=== PATIENT | female | born 1950 | race Caucasian/White ===

== ENCOUNTER 2022-12-21 15:46 | Inpatient (IN) ==
--- NOTE | 2022-12-21 16:00 | ED Triage Note ---
Date of Service December 21, 2022 History of Present Illness This patient was briefly evaluated while in triage. An abbreviated physical exam was performed. This patient is a 72-year-old Female who presents to the ED for evaluation of hip pain. She was getting out of the car to go into a restaurant to eat and took 1-2 steps before she slipped on something and landed on her right hip. Made a "crunchy" sound. Had trouble getting up, but was finally able to get up and drive herself home. Not really able to move the right leg or walk without a significant limp. Also has an abrasion to the right wrist. Tetanus shot UTD. Hit right shoulder, but only mild pain. Did not hit her head. No blood thinner s. Declines medication for pain right now. Physical Exam GENERAL: Non-toxic and in no acute distress. HEENT: Pupils equal. No obvious scleral icterus. HEART: Regular rate and rhythm. LUNGS: Clear to auscultation. No accessory muscle use. ABDOMEN: Soft and nontender to palpation. SKIN: Superficial abrasion to the right wrist without active bleeding. NEURO: Alert and oriented. No obvious neurological deficits on quick neuro exam. MUSCULOSKELETAL: Tender to palpation over the right hip. The patient is sitting in a wheelchair and exam is limited, but has pain in the right hip with any attempted to move the right lower extremity. She is also tender to palpation over the anterior and lateral aspect of the right shoulder. Full range of mot ion of the right shoulder, but with mild pain. Initial orders for labs and / or imaging were placed and patient was placed in the waiting area until a bed is available. Please see further documentation for the full ED course. MDM / Impression Impression Impression: Subcapital fracture of right hip Impression: Subcapital fracture of right hip Qualifiers: Encounter type: initial encounter Fracture type: closed Qualified Code(s): S72.011A - Unspecified intracapsular fracture of right femur, initial encounter for closed fracture
--- NOTE | 2022-12-21 18:25 | XRay Report ---
SINGLE VIEW PELVIS; 2 VIEWS RIGHT HIP CLINICAL HISTORY: Recent fall. Right hip pain. FINDINGS: An AP view of the pelvis with AP and frog leg views of the right hip are obtained. No prior studies are available for comparison at the time of dictation. The skeletal structures are osteopeni c. There is an impacted subcapital fracture of the right proximal femur with overlying soft tissue ed neil. No additional fracture is seen involving the left hip or the bony pelvis. Mild arthritic change and joint space narrowing is seen in the hips. Enthesophytes arise from the anterior superior iliac s pines. There is degenerative sclerosis of the sacroiliac joints. IMPRESSION: Impacted subcapital fracture of the right proximal femur as above. Electronically signed by: Luis Jordan M.D. 12/21/2022 6:24 PM
[2022-12-21] MEDS ORDERED: MoRPHine SULFATE 4 MG/ML 1 ML CARP\\VIAL IV PRN (18:39)
[2022-12-21] MEDS ORDERED: ONDANSETRON INJ 2 MG/ML 2 ML VIAL IV STA (18:39)
[2022-12-21] MEDS ORDERED: MoRPHine SULFATE 4 MG/ML 1 ML CARP\\VIAL IV STA (18:39)
--- NOTE | 2022-12-21 18:43 | Emergency Department Note ---
Impression & Plan Subcapital fracture of right hip ED Provider Note NAME: MONICA ADAM AGE: 72 SEX: F : 1950 ARRIVES VIA: Ambulance INFORMANT: Patient, ED PROVIDER(S): Mariusz Miranda DO CHIEF COMPLAINT: Right hip pain HPI: The patient is a 72-year-old female who presented to the emergency department for evaluation of right hip pain. The patient had a fall from a standing position 2 nights ago. She landed on her right side injuring her right hip. The patient states that she was unable to ambulate immediately but was able to eventually ambulate with crutches. The pain is worsened ever since that time. She presented to the emergency department by ambulance because of ongoing symptoms. Unfortunately patient was placed in the waiting room because of volume. She denies having any headaches. She denies having any head injury or neck pain. The patient does complain of right shoulder pain. ROS: See above HPI for pertinent positives & negatives. A total of 10 systems reviewed and were otherwise negative. PAST MEDICAL HISTORY: See Below PAST SURGICAL HISTORY: See Below FAMILY HISTORY: See Below SOCIAL HISTORY: See Below HOME MEDICATIONS: See Below ALLERGIES: See Below VITALS: See Below PHYSICAL EXAMINATION: GENERAL: The patient is awake and alert. The patient is very anxious and uncomfortable appearing. EYES: The conjunctivae are clear. The pupils are round and reactive. EARS, NOSE, MOUTH AND THROAT: The nose is without any evidence of any deformity. NECK: The neck is nontender and supple. RESPIRATORY: Normal respiratory effort is noted there is no evidence of wheezing rhonchi or rales CARDIOVASCULAR: Regular rate and rhythm noted there no murmurs rubs or gallops normal S1 normal S2. GASTROINTESTINAL: The abdomen is soft. Abdomen is nontender. BACK: No midline tenderness or or step-off noted range of motion in flexion extension as well as rotation no signs of muscle spasm noted MUSCULOSKELETAL/EXTREMITIES: There is no shortening or gross deformity but there is pain with range of motion testing of the right hip. Especially with internal/external rotation. SKIN: There is no obvious evidence of any rash. There are no petechiae, pallor or cyanosis noted. Pulses are symmetric in both feet. There is no pedal edema. NEUROLOGIC: Patient is awake alert and oriented x3 MEDICAL DECISION MAKING: The patient is a 72-year-old female who presented to the emergency department for an evaluation of hip pain. The patient had a fall 2 days ago. She was able to ambulate initially but then had significant pain in her hip. She started using crutches. The patient was found to have a subcapital right hip fracture on x-ray. The patient was treated with pain medication in the emergency department. I discussed her condition with the on-call [facility] hospitalist. They have agreed to evaluate the patient in the emergency department for further management and disposition. I discussed the patient's laboratory and radiographic studies with her. Triage Nursing notes reviewed. Prior medical records reviewed Vital Signs: reviewed and remarkable for elevated blood pressure. Differential diagnosis: Fracture, dislocation, neurovascular compromise, compartment syndrome, soft tissue injury, as well as other pathologies. ER treatment provided: See below Diagnostics interpreted by me: ECG: EKG was obtained in the emergency department. My interpretation is sinus tachycardia at 108 bpm. There was no ectopy. There is no acute ST segment abnormalities noted. 4 baseline was noted. There is an incomplete right bundle branch block pattern noted. This was compared to a tracing from June 29, 2007. No specific changes were noted. Cardiac Monitoring: An order was placed for continuous cardiac monitoring. The monitor shows a rate of 106 bpm with sinus tachycardia. Laboratory studies: As stated above and show below. Imaging studies: See below. Radiographic imaging was reviewed by myself Consultation(s): I discussed this case with Dr. Puri [facility] Past Med/Surg History Medical History Hypertension Social History Smoking Status: Current every day smoker Tobacco Type: Cigarettes Preferred Language: Citizen Of [place] Feels Safe at Home: Yes Allergies Allergies Allergy/AdvReac Type Severity Reaction Status Date / Time No Known Allergies Allergy Unknown Verified 06/29/07 19:21 Home Meds Home Medications Medication Instructions Recorded Confirmed albuterol sulfate 90 mcg/actuation 2 inh inhalation Q6H PRN Shortness 12/21/22 12/21/22 aerosol inhaler Of Breath Or Wheezing atorvastatin 10 mg tablet 10 mg PO DAILY 12/21/22 12/21/22 diltiazem HCl 240 mg capsule,24 240 mg PO DAILY 12/21/22 12/21/22 hr,extended release fluticasone propionate 50 2 spray intranasal DAILY 12/21/22 12/21/22 mcg/actuation nasal spray,suspension lisinopril 20 mg tablet 20 mg PO BID 12/21/22 12/21/22 Results & Data (ED) Vital Signs Vital Signs - 24 hr 12/21/22 15:57 12/21/22 18:45 12/21/22 18:45 Temperature 37 C Temperature Source Temporal Artery Scan Pulse Rate 108 H 111 H Pulse Rate [Right Finger] 111 H Pulse Rhythm Regular Regular Pulse Rhythm [Right Finger] Regular Pulse Strength Normal Pulse Strength [Right Finger] Normal Respiratory Rate 22 18 18 Respiratory Effort / Characteristics Non-Labored Spontaneous Non-Labored Spontaneous Respiratory Depth Normal Normal Respiratory Pattern Regular Regular Blood Pressure 157/82 H Blood Pressure [Right Arm] 163/87 H Blood Pressure Mean 107 Blood Pressure Mean [Right Arm] 112 Blood Pressure Position Sitting Blood Pressure Position [Right Arm] Sitting Pulse Oximetry 94 96 96 Oxygen Delivery Method Room Air Room Air Room Air Oxygen Flow Rate Sepsis Recent Fever Within 48 Hours No Sepsis New/Unexplained Change in Mental Status No Sepsis Action Taken by Nursing No Action Required Oxygen Flow Rate - Titration Pulse Oximetry Post Tiitration 12/21/22 20:42 12/21/22 20:35 12/21/22 20:44 Temperature Temperature Source Pulse Rate 106 H Pulse Rate [Right Finger] 105 H Pulse Rhythm Pulse Rhythm [Right Finger] Regular Pulse Strength Pulse Strength [Right Finger] Normal Respiratory Rate 26 H Respiratory Effort / Characteristics Non-Labored Spontaneous Respiratory Depth Normal Respiratory Pattern Regular Blood Pressure Blood Pressure [Right Arm] 144/101 H Blood Pressure Mean Blood Pressure Mean [Right Arm] 115 Blood Pressure Position Blood Pressure Position [Right Arm] Lying Pulse Oximetry 96 86 L Oxygen Delivery Method Nasal Cannula Nasal Cannula Oxygen Flow Rate 2 0 Sepsis Recent Fever Within 48 Hours Sepsis New/Unexplained Change in Mental Status Sepsis Action Taken by Nursing Oxygen Flow Rate - Titration 2 Pulse Oximetry Post Tiitration 95 Home Medications Current Medication List: was personally reviewed by me Laboratory Data Attestation: I reviewed the patient's lab results. 12/21/22 18:55 12/21/22 18:55 Lab Results 12/21/22 12/21/22 12/21/22 Range/Units 18:55 18:55 18:55 WBC 9.24 (4.8-10.8) K/ul RBC 5.16 (4.20-5.40) M/uL Hgb 16.7 H (12.0-16.0) g/dl Hct 47.1 H (37.0-47.0) % MCV 91.3 (80.0-100.0) fL MCH 32.4 (25.0-34.0) pg MCHC 35.5 (32.0-36.0) g/dL RDW Std Deviation 46.0 (36.4-46.3) fL RDW Coeff of Lilli 13.5 (11.5-14.5) % Plt Count 151 (130-400) K/uL MPV 11.5 (9.4-12.4) fL Immature Gran % (Auto) 0.3 % Neut % (Auto) 74.4 % Lymph % (Auto) 16.9 % Winkler % (Auto) 6.7 % Eos % (Auto) 1.1 % Baso % (Auto) 0.6 % Neut # (Auto) 6.87 H (1.40-6.50) K/uL Lymph # (Auto) 1.56 (1.2-3.4) K/uL Winkler # (Auto) 0.62 H (0.11-0.59) K/uL Eos # (Auto) 0.10 (0-0.50) K/uL Baso # (Auto) 0.06 (0-0.2) K/uL Immature Gran # (Auto) 0.03 (0.01-0.20) K/uL PT 10.7 (9.0-12.0) Seconds INR 1.0 (0.9-1.1) APTT 33.2 H (21.0-31.0) Seconds PTT Ratio 1.2 Sodium 139 (136-145) mmol/L Potassium 4.0 (3.5-5.1) mmol/L Chloride 105 (98-107) mmol/L Carbon Dioxide 25 (21-32) mmol/L Anion Gap 9 (3-11) BUN 13 (6-23) mg/dl Creatinine 0.69 (0.6-1.2) mg/dl Est Cr Clr Drug Dosing 85.8 ml/min Est GFR ( Amer) 100.8 ml/min Est GFR (Non-Af Amer) 87.0 ml/min BUN/Creatinine Ratio 18.8 (10-20) Glucose 110 H (70-99(Fasting)) mg/dl Calcium 10.0 (8.6-10.3) mg/dl Total Bilirubin 0.8 (0.2-1.0) mg/dl AST 16 (13-39) U/L ALT 16 (7-52) U/L Alkaline Phosphatase 69 (34-104) U/L Troponin I High Sens 8.5 (0-14) pg/ml Total Protein 7.5 (6.0-8.3) gm/dl Albumin 4.2 (3.4-5.0) gm/dl Globulin 3.3 (2.5-4.0) gm/dl Albumin/Globulin Ratio 1.3 (0.9-2) Lipase 12 (11-82) U/L SARS-CoV-2, RNA, NAAT (NEGATIVE) 12/21/22 Range/Units 18:55 WBC (4.8-10.8) K/ul RBC (4.20-5.40) M/uL Hgb (12.0-16.0) g/dl Hct (37.0-47.0) % MCV (80.0-100.0) fL MCH (25.0-34.0) pg MCHC (32.0-36.0) g/dL RDW Std Deviation (36.4-46.3) fL RDW Coeff of Lilli (11.5-14.5) % Plt Count (130-400) K/uL MPV (9.4-12.4) fL Immature Gran % (Auto) % Neut % (Auto) % Lymph % (Auto) % Winkler % (Auto) % Eos % (Auto) % Baso % (Auto) % Neut # (Auto) (1.40-6.50) K/uL Lymph # (Auto) (1.2-3.4) K/uL Winkler # (Auto) (0.11-0.59) K/uL Eos # (Auto) (0-0.50) K/uL Baso # (Auto) (0-0.2) K/uL Immature Gran # (Auto) (0.01-0.20) K/uL PT (9.0-12.0) Seconds INR (0.9-1.1) APTT (21.0-31.0) Seconds PTT Ratio Sodium (136-145) mmol/L Potassium (3.5-5.1) mmol/L Chloride (98-107) mmol/L Carbon Dioxide (21-32) mmol/L Anion Gap (3-11) BUN (6-23) mg/dl Creatinine (0.6-1.2) mg/dl Est Cr Clr Drug Dosing ml/min Est GFR ( Amer) ml/min Est GFR (Non-Af Amer) ml/min BUN/Creatinine Ratio (10-20) Glucose (70-99(Fasting)) mg/dl Calcium (8.6-10.3) mg/dl Total Bilirubin (0.2-1.0) mg/dl AST (13-39) U/L ALT (7-52) U/L Alkaline Phosphatase (34-104) U/L Troponin I High Sens (0-14) pg/ml Total Protein (6.0-8.3) gm/dl Albumin (3.4-5.0) gm/dl Globulin (2.5-4.0) gm/dl Albumin/Globulin Ratio (0.9-2) Lipase (11-82) U/L SARS-CoV-2, RNA, NAAT NEGATIVE (NEGATIVE) Administered Medications Discontinued Medications Morphine Sulfate (Morphine Sulfate 4 Mg/Ml 1 Ml Carp\Vial) 4 mg IV NOW STA Stop: 12/21/22 18:40 Last Admin: 12/21/22 19:03 Dose: 4 mg Documented By: TECHNICAL EXPERT Ondansetron HCl (Ondansetron Inj 2 Mg/Ml 2 Ml Vial) 4 mg IV NOW STA Stop: 12/21/22 18:40 Last Admin: 12/21/22 19:02 Dose: 4 mg Documented By: TECHNICAL EXPERT Imaging Data Attestation: I personally reviewed and interpreted this imaging study as follows: My Impression: 1 view chest x-ray was obtained in the emergency department. My interpretation is no free air, no definite filtrate, no acute disease X-ray of the right hip and pelvis were obtained in the emergency department. My interpretation is subcapital right hip fracture, final report below. Radiologist's Impression: Hip/Pelvis X-Ray 12/21/22 16:00 SINGLE VIEW PELVIS; 2 VIEWS RIGHT HIP CLINICAL HISTORY: Recent fall. Right hip pain. FINDINGS: An AP view of the pelvis with AP and frog leg views of the right hip are obtained. No prior studies are available for comparison at the time of dictation. The skeletal structures are osteopenic. There is an impacted subcapital fracture of the right proximal femur with overlying soft tissue edema. No additional fracture is seen involving the left hip or the bony pelvis. Mild arthritic change and joint space narrowing is seen in the hips. Enthesophytes arise from the anterior superior iliac spines. There is degenerative sclerosis of the sacroiliac joints. IMPRESSION: Impacted subcapital fracture of the right proximal femur as above. Electronically signed by: Luis Jordan M.D. 12/21/2022 6:24 PM Chest X-Ray 12/21/22 18:27 SINGLE VIEW CHEST CLINICAL HISTORY: Preoperative examination. Hip fracture. Atypical chest pain FINDINGS: An AP, portable, supine chest radiograph is compared to study dated 06/29/2007 and correlated with chest CT dated 06/08/2008. The cardiomediastinal silhouette is normal for projection.. Emphysema and chronic interstitial thickening is similar to previous. There is bibasilar scarring/atelectasis. No airspace consolidation or large pleural effusion is identified. No pneumothorax is seen. The skeletal structures are osteopenic. The bony thorax is grossly intact. Fusion hardware is noted in the lower cervical spine. IMPRESSION: Emphysematous change with no acute cardiopulmonary abnormality. ACT 112: Negative or not required by law. Electronically signed by: Luis Jordan M.D. 12/21/2022 8:06 PM Discharge Plan Visit Data Chief Complaint: Hip Pain Stated Complaint: HIP PAIN, FELL FRIDAY ED Provider: Mariusz Miranda Discharge Problem: Subcapital fracture of right hip Patient Disposition: Being Evaluated by Hospitalist Forms Stand Alone Forms: My [facility] [place] [facility] Prescriptions Prescriptions: No Action atorvastatin 10 mg tablet 10 mg PO DAILY lisinopril 20 mg tablet 20 mg PO BID diltiazem HCl 240 mg capsule,extended release 24 hr 240 mg PO DAILY albuterol sulfate 90 mcg/actuation HFA aerosol inhaler 2 inh INHALATION Q6H PRN (Reason: Shortness Of Breath Or Wheezing) fluticasone propionate 50 mcg/actuation spray,suspension 2 spray INTRANASAL DAILY Referrals Referrals: PCP,NO [Physician] -
[2022-12-21 19:22] LABS: Basophils # (auto) 0.06 K/uL (0-0.2); Basophils % (auto) 0.6 %; Eosinophils % (auto) 1.1 %; Hematocrit (blood only) 47.1 % (37.0-47.0); Hemoglobin 16.7 g/dl (12.0-16.0); Immature Granulocytes # (auto) 0.03 K/uL (0.01-0.20); Immature Granulocytes % (auto) 0.3 %; Lymphocytes # (auto) 1.56 K/uL (1.2-3.4); Lymphocytes % (auto) 16.9 %; Mean Corpuscular Hemoglobin 32.4 pg (25.0-34.0); Mean Corpuscular Hgb Conc 35.5 g/dL (32.0-36.0); Mean Corpuscular Volume 91.3 fL (80.0-100.0); Mean Platelet Volume 11.5 fL (9.4-12.4); Monocytes # (auto) 0.62 K/uL (0.11-0.59); Monocytes % (auto) 6.7 %; Neutrophils # (auto) 6.87 K/uL (1.40-6.50); Neutrophils % (auto) 74.4 %; Platelet Count 151 K/uL (130-400); RDW Coefficient of Variation 13.5 % (11.5-14.5); Red Blood Count 5.16 M/uL (4.20-5.40); White Blood Count 9.24 K/ul (4.8-10.8)
[2022-12-21 19:37] LABS: Albumin Globulin Ratio 1.3 (0.9-2); Albumin Level 4.2 gm/dl (3.4-5.0); BUN Creatinine Ratio 18.8 (10-20); Bilirubin,Total 0.8 mg/dl (0.2-1.0); Creatinine Clr Calc Pharmacy 85.8 ml/min; Est GFR (African American) 100.8 ml/min; Globulin 3.3 gm/dl (2.5-4.0); Total Protein 7.5 gm/dl (6.0-8.3)
[2022-12-21 19:44] LABS: Troponin I High Sensitivity 8.5 pg/ml (0-14)
[2022-12-21 19:49] LABS: Partial Thromboplastin Ratio 1.2; Partial Thromboplastin Time 33.2 Seconds (21.0-31.0); Prothrombin Time 10.7 Seconds (9.0-12.0)
--- NOTE | 2022-12-21 20:07 | XRay Report ---
SINGLE VIEW CHEST CLINICAL HISTORY: Preoperative examination. Hip fracture. Atypical chest pain FINDINGS: An AP, portable, supine chest radiograph is compared to study dated 06/29/2007 and correlate d with chest CT dated 06/08/2008. The cardiomediastinal silhouette is normal for projection.. Emphysem a and chronic interstitial thickening is similar to previous. There is bibasilar scarring/atelectasis . No airspace consolidation or large pleural effusion is identified. No pneumothorax is seen. The ske letal structures are osteopenic. The bony thorax is grossly intact. Fusion hardware is noted in the l ower cervical spine. IMPRESSION: Emphysematous change with no acute cardiopulmonary abnormality. ACT 112: Negative or not required by law. Electronically signed by: Luis Jordan M.D. 12/21/2022 8:06 PM
[2022-12-21] MEDS ORDERED: ALBUTEROL HFA 8 GM INHALER INH PRN (22:49)
[2022-12-21] MEDS ORDERED: POLYETHYLENE (MIRALAX) 17 GM PACK PO PRN (22:49)
[2022-12-21] MEDS ORDERED: NITROGLYCERIN SL 0.4 MG/TAB TAB SL PRN (22:49)
[2022-12-21] MEDS ORDERED: SODIUM CHLORIDE 0.9% 1000ML 1,000 ML IV SCH (22:49)
[2022-12-21] MEDS ORDERED: ONDANSETRON INJ 2 MG/ML 2 ML VIAL IV PRN (22:49)
--- NOTE | 2022-12-21 23:52 | History and Physical Report ---
DATE OF ADMISSION: 12/21/2022. CHIEF COMPLAINT: Status post fall and right hip fracture. HISTORY OF PRESENT ILLNESS: This is a 72-year-old female with past medical history significant for hyperlipidemia, COPD, ongoing tobacco abuse, history of hypertension, sinus tachycardia, history of lumbar degenerative disc disease, obesity, history of depression currently no longer on Zoloft, history of endometrial cancer, status post surgery, under surveillance, who presents with fall and found to have right hip fracture. The patient says couple of days ago, when she was getting out of the car, she slipped and fell on the right side. She could not get up for long time. Finally, she was able to get up and drove . She is walking with dragging her right leg and the pain was getting worse, not eating much and drinking because of the pain and she went to see PCP office and was advised to come to the ER and found to have right hip fracture. She was given pain medications and curently she is requiring 2 liters of oxygen. Denies any chest pain or shortness of breath, occasional cough, occasional runny nose, no sore throat, no fevers, no headache, no blurred visions, was nauseous because of pain medications. No abdominal pain. Normal bowel and bladder movements. Says micturating lot because she is mostly on liquid diet for last couple days. ALLERGIES: LATEX. PAST MEDICAL HISTORY: As mentioned above. PAST SURGICAL HISTORY: Anterior cervical arthroplasty with diskectomy, bilateral carpal tunnel surgery, bilateral foot-toe surgery, lumbosacral spinal injection, robotic laparoscopic hysterectomy with removal of tubes and ovaries. MEDICATIONS: The patient is on albuterol 2 puffs inhalation q. 6 hours p.r.n., atorvastatin 10 mg p.o. daily, diltiazem 240 mg p.o. daily, Flonase 2 sprays intranasal daily, lisinopril 20 mg p.o. b.i.d. FAMILY HISTORY: Significant for father has emphysema; mother had stroke. SOCIAL HISTORY: Smokes 1 pack a day for 20 years. Alcohol occasional. No drug use. REVIEW OF SYSTEMS: As per HPI. Rest of review of systems is negative. PHYSICAL EXAMINATION: GENERAL: The patient is obese, not in acute distress. VITAL SIGNS: Temperature 37, pulse 106, respiratory rate 20, blood pressure 144/101, oxygen 96% on 2 liters. HEENT: Pupils equal, round and reactive to light. Oral mucosa moist. NECK: No JVD. No neck masses. CARDIOVASCULAR: S1 and S2 heard. Regular rate and rhythm. No murmur, no gallop. RESPIRATORY SYSTEM: Normal AP diameter. No accessory muscle use. No wheezing, no crackles. ABDOMEN: Soft, bowel sounds present, nontender, no distention. CENTRAL NERVOUS SYSTEM: Alert and oriented. Speech is clear. No facial droop. Obeys simple commands. EXTREMITIES: Right lower extremity is slightly shortened. No edema, no erythema seen. LABORATORY DATA: WBC 9.2, hemoglobin 16.7, hematocrit 47.1, platelets 151. PT 10.7, INR 1, APTT 33.2. Sodium 139, potassium 4, chloride 105, bicarbonate 25, BUN 13, creatinine 0.6, serum glucose 110, calcium 10, total bilirubin 0.8. AST 16, ALT 16, alkaline phosphatase 69. Troponin I high sensitivity 5.5. Lipase 12. SARS-CoV-2 rapid test negative. DIAGNOSTIC DATA: Chest x-ray: Emphysematous change with no acute cardiopulmonary abnormalities. Hip and pelvic x-ray impacted subcapital fracture of the right proximal femur. EKG: Sinus tachycardia at a rate of 108, nonspecific ST changes. ASSESSMENT AND PLAN: This is a 72-year-old female presents with fall and right hip fracture. 1. Status post fall and right hip fracture: Mechanical fall. The patient is still smoking and has COPD, but not in exacerbation currently. Her labs are okay. The patient says she used to ambulate fine and used to climb steps okay prior to the fall. The patient is at acceptable risk to proceed with surgery. We will keep her n.p.o., IV fluids, IV antiemetics, IV Dilaudid p.r.n.. 2. History of chronic obstructive pulmonary disease: Currently, not in exacerbation. Continue albuterol prn 3. History of tobacco abuse: Needs counseling. 4. History of hypertension: Continue diltiazem. We will hold lisinopril for the procedure and we will place her on IV hydralazine and monitor the blood pressure. 5. Hyperlipidemia: On statin. 6. Sustained tachycardia: Continue diltiazem. Monitor in the med tele. 7. Deep venous thrombosis prophylaxis: We will not place SCD because of fracture. We will not give anticoagulation currently because of plan for procedure. Further anticoagulation as per orthopedics. DISPOSITION: Admit to [facility]. Job ID: [id number] [facility]
[2022-12-22 06:06] LABS: Basophils # (auto) 0.05 K/uL (0-0.2); Basophils % (auto) 0.7 %; Eosinophils # (auto) 0.15 K/uL (0-0.50); Eosinophils % (auto) 2.1 %; Hematocrit (blood only) 45.1 % (37.0-47.0); Hemoglobin 15.3 g/dl (12.0-16.0); Immature Granulocytes # (auto) 0.04 K/uL (0.01-0.20); Immature Granulocytes % (auto) 0.6 %; Lymphocytes % (auto) 22.9 %; Mean Corpuscular Hemoglobin 32.1 pg (25.0-34.0); Mean Corpuscular Hgb Conc 33.9 g/dL (32.0-36.0); Mean Corpuscular Volume 94.5 fL (80.0-100.0); Mean Platelet Volume 11.4 fL (9.4-12.4); Monocytes # (auto) 0.58 K/uL (0.11-0.59); Monocytes % (auto) 8.3 %; Neutrophils # (auto) 4.58 K/uL (1.40-6.50); Neutrophils % (auto) 65.4 %; Platelet Count 129 K/uL (130-400); RDW Coefficient of Variation 13.7 % (11.5-14.5); RDW Standard Deviation 47.5 fL (36.4-46.3); Red Blood Count 4.77 M/uL (4.20-5.40)
[2022-12-22 06:17] LABS: BUN Creatinine Ratio 25.8 (10-20); Calcium 8.8 mg/dl (8.6-10.3); Creatinine Clr Calc Pharmacy 94.2 ml/min; Est GFR (African American) 102.3 ml/min; Est GFR (Non-African American) 88.3 ml/min; Magnesium 1.9 mg/dl (1.7-2.4); Potassium 3.9 mmol/L (3.5-5.1)
[2022-12-22] MEDS ORDERED: LACTATED RINGER'S 1,000 ML IV ONE (06:32)
[2022-12-22] MEDS: ATORVASTATIN 10 MG TAB PO SCH (07:02)
[2022-12-22] MEDS: dilTIAZem HCL 240 MG CAPCR PO SCH (07:05)
[2022-12-22] MEDS: FLUTICASONE PROPIONATE NA SPR 16 GM BTL SCH (07:14)
[2022-12-22] MEDS ORDERED: hydrALAZINE HCL 20 MG/ML VIAL IV PRN (08:01)
--- NOTE | 2022-12-22 08:17 | Anesthesiology Consultation ---
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 Surgery Operation Date: 12/22/22 06:55 Proposed Procedures p Intramedullary Surjit Femur(Right) - Pasquale Leiva DO Height/Weight Height: 5 ft 8 in Weight: 97.4 kg Allergies Allergy/AdvReac Type Severity Reaction Status Date / Time latex Allergy Rash Verified 12/22/22 00:39 Medications Home Medications Medication Instructions Recorded Confirmed Last Taken albuterol sulfate 90 mcg/actuation 2 inh inhalation Q6H PRN Shortness 12/21/22 12/21/22 Unknown aerosol inhaler Of Breath Or Wheezing atorvastatin 10 mg tablet 10 mg PO DAILY 12/21/22 12/21/22 Unknown diltiazem HCl 240 mg capsule,24 240 mg PO DAILY 12/21/22 12/21/22 Unknown hr,extended release fluticasone propionate 50 2 spray intranasal DAILY 12/21/22 12/21/22 Unknown mcg/actuation nasal spray,suspension lisinopril 20 mg tablet 20 mg PO BID 12/21/22 12/21/22 Unknown Active Medications Generic Name Dose Route Start Last Admin Trade Name Freq PRN Reason Stop Dose Admin Atorvastatin Calcium 10 mg 12/22/22 09:00 12/22/22 07:02 Atorvastatin 10 Mg Tab PO 01/21/23 08:59 10 mg DAILY STEFANO Administration Diltiazem HCl 240 mg 12/22/22 09:00 12/22/22 07:05 Diltiazem Hcl 240 Mg Capcr PO 01/21/23 08:59 240 mg DAILY STEFANO Administration Fluticasone Propionate 2 sprays 12/22/22 09:00 12/22/22 07:14 Fluticasone Propionate Na Spr 16 Gm Btl NA 01/21/23 08:59 Not Given DAILY STEFANO Lactated Ringer's 1,000 mls @ 200 mls/hr 12/22/22 06:32 12/22/22 06:38 Lr IV 12/22/22 11:31 200 mls/hr .Q5H ONE Administration Past Medical History Medical History Hypertension Social History Smoking Status: Current every day smoker tobacco type: cigarettes Smoking cigarettes per day: 20 Do You Dip or Chew Tobacco: No Hx Alcohol Use: Yes alcohol intake frequency: holidays/special occasions only Hx Substance Use: No Physical Exam Vital Signs Last Vital Signs Temp 98.6 F 12/22/22 07:58 Pulse 94 H 12/22/22 07:58 Resp 20 12/22/22 07:58 BP 126/76 12/22/22 07:58 Pulse Ox 93 12/22/22 07:58 O2 Del Method Room Air 12/22/22 07:58 O2 Flow Rate 2 12/22/22 04:37 Testing Laboratory Results 12/22/22 05:16 12/22/22 05:16 PT 10.7 Seconds (9.0-12.0) 12/21/22 18:55 INR 1.0 (0.9-1.1) 12/21/22 18:55 APTT 33.2 Seconds (21.0-31.0) H 12/21/22 18:55 Electrocardiogram Date: 12/21/22 Poor data quality, interpretation may be adversely affected Sinus tachycardia, rate 108 bpm Possible Left atrial enlargement Borderline ECG When compared with ECG of 29-JUN-2007 16:25, Non-specific change in ST segment in Anterior leads Chest X-Ray Date: 12/21/22 FINDINGS: An AP, portable, supine chest radiograph is compared to study dated 06/29/2007 and correlated with chest CT dated 06/08/2008. The cardiomediastinal silhouette is normal for projection.. Emphysema and chronic interstitial thickening is similar to previous. There is bibasilar scarring/atelectasis. No airspace consolidation or large pleural effusion is identified. No pneumothorax is seen. The skeletal structures are osteopenic. The bony thorax is grossly intact. Fusion hardware is noted in the lower cervical spine. IMPRESSION: Emphysematous change with no acute cardiopulmonary abnormality.
[2022-12-22] MEDS ORDERED: BUPIVACAINE 0.5 % 5 MG/1 ML PF 10ML VIAL ONE (08:48)
[2022-12-22] MEDS ORDERED: ATROPINE SULFATE 0.1 MG/ML 10ML SYR IV PRN (08:52)
[2022-12-22] MEDS ORDERED: ONDANSETRON INJ 2 MG/ML 2 ML VIAL IV PRN (08:52)
[2022-12-22] MEDS ORDERED: fentaNYL citrate PF 100 MCG/2 ML VIAL IV PRN (08:52)
[2022-12-22] MEDS ORDERED: ePHEDrine sulfate 50 MG/ML AMP IV PRN (08:52)
[2022-12-22] MEDS ORDERED: fentaNYL citrate PF 100 MCG/2 ML VIAL ONE (09:00)
[2022-12-22] MEDS ORDERED: MIDAZOLAM HCL 1 MG/ML 2ML VIAL ONE ×2 (09:00)
[2022-12-22] MEDS ORDERED: LIDOCAINE 2% 20 MG/ML 5 ML SYR IV ONE (09:02)
[2022-12-22] MEDS ORDERED: PROPOFOL IV EMULSION 10 MG/ML 20 ML VIAL IV ONE (09:02)
[2022-12-22] MEDS ORDERED: ONDANSETRON INJ 2 MG/ML 2 ML VIAL ONE (09:03)
[2022-12-22] MEDS ORDERED: ceFAZolin 2000MG 2,000 MG/15 ML SYR IV ONE (09:47)
[2022-12-22] MEDS ORDERED: BUPIVACAINE 0.25% PF 30 ML VIAL ONE (09:47)
--- NOTE | 2022-12-22 09:52 | History & Physical Bridge Note ---
Date of Service December 22, 2022 History & Physical Bridge Note I have examined the patient, reviewed the History & Physical and in the interval since the performance of the History & Physical I have noted the following changes of clinical significance: no changes noted. Patient seen and examined. We do lengthy discussion regarding risks, benefits, and potential complications of right hip open reduction internal fixation for her impacted right femoral neck fracture. These include but are not limited to: Infection, neurovascular injury, DVT, nonunion, hardware failure and need for future surgery. After reviewing these she has elected to proceed with surgical intervention and written consent was obtained.
--- NOTE | 2022-12-22 09:56 | Orthopedic Consultation ---
Date of Consultation December 22, 2022 Assessment & Plan (1) Subcapital fracture of right hip: 72-year-old female with impacted right femoral neck fracture -Nonweightbearing right lower extremity -N.p.o. -Hold DVT prophylaxis for OR -Medical management -Pain control -Antibiotics on-call to the OR -Plan for right femoral neck open reduction internal fixation History of Present Illness Reason for Consultation: Right femoral neck fracture Attending Physician: Colton Jason MD History of Present Illness 72-year-old female presenting after sustaining a ground-level fall several days ago. She reports that she fell onto her right side. She was able to walk around some and then drove home and noted more pain in her hip. Ultimately that caused her to present to the emergency department where radiographs were obtained demonstrating a valgus impacted right femoral neck fracture. Patient was admitted to medical service and orthopedics was consulted for operative management. Allergies Allergy/AdvReac Type Severity Reaction Status Date / Time latex Allergy Rash Verified 12/22/22 00:39 Home Medications Medication Instructions Recorded Confirmed Type albuterol sulfate 90 mcg/actuation 2 inh inhalation Q6H PRN Shortness 12/21/22 12/21/22 History aerosol inhaler Of Breath Or Wheezing atorvastatin 10 mg tablet 10 mg PO DAILY 12/21/22 12/21/22 History diltiazem HCl 240 mg capsule,24 240 mg PO DAILY 12/21/22 12/21/22 History hr,extended release fluticasone propionate 50 2 spray intranasal DAILY 12/21/22 12/21/22 History mcg/actuation nasal spray,suspension lisinopril 20 mg tablet 20 mg PO BID 12/21/22 12/21/22 History Patient History Medical History Hypertension Social History Smoking Status: Current every day smoker Tobacco Type: Cigarettes Cigarettes Per Day: 20; Do You Dip or Chew Tobacco: No; Hx Alcohol Use: Yes Hx Substance Use: No Preferred Language: Occitan Communication Ability: Effective Foreign Exchange Clerk Required: No Beliefs That Will Affect Care: None Current Living Situation: Alone Other Information That Helps Us Care for You: No Feels Safe at Home: Yes Safety Concerns: Feels Safe At This Time Assistive Devices: None Physical Exam Physical Exam: General: No acute distress, alert and oriented person place and time Musculoskeletal: Right lower extremity -Pain with logroll and attempted straight leg raise -Sensation intact to light touch s/spn/dpn/t/s -Fires ta/ehl/gsc + dp/pt Results & Data Vital Signs (Past 12 Hours) Vital Signs Temp Pulse Pulse Resp BP BP BP 12/22/22 08:19 12/22/22 07:58 37.0 C 94 H 20 126/76 12/22/22 06:58 95 H 12/22/22 04:37 97 H 12/22/22 03:45 37.1 C 98 H 16 107/66 12/21/22 22:44 104 H 12/21/22 22:49 12/21/22 22:49 36.5 C 107 H 16 118/68 12/21/22 21:59 36.8 C 102 H 21 114/54 L Pulse Ox O2 Del Method O2 Flow Rate 12/22/22 08:19 Room Air 12/22/22 07:58 93 Room Air 12/22/22 06:58 12/22/22 04:37 95 Nasal Cannula 2 12/22/22 03:45 92 Nasal Cannula 2 12/21/22 22:44 12/21/22 22:49 Nasal Cannula 2 12/21/22 22:49 96 Nasal Cannula 2 12/21/22 21:59 96 Nasal Cannula 2 Diagnostic Findings 2 views of the right hip demonstrate a valgus impacted right femoral neck fracture (1) Subcapital fracture of right hip Encounter type: initial encounter Fracture type: closed Qualified Code(s): S72.011A - Unspecified intracapsular fracture of right femur, initial encounter for closed fracture
[2022-12-22] MEDS ORDERED: PHENYLEPHRINE 100MCG/ML 5ML SYR ONE (10:33)
[2022-12-22] MEDS ORDERED: PHENYLEPHRINE HCL 10 MG/ML VIAL ONE (10:33)
[2022-12-22] MEDS ORDERED: ceFAZolin 330 MG/ML 1 GM VIAL ONE (10:34)
--- NOTE | 2022-12-22 11:01 | Post Operative Brief Note ---
Immediate Post Op Note v1 Date of Surgery December 22, 2022 Pre & Post Diagnosis Operation Date: 12/22/22 06:55 Pre-Op Diagnosis: Right hip fracture Post-Op Diagnosis: Right hip fracture I identified the patient and participated in the time-out.: Yes Procedure Operation Date: 12/22/22 06:55 Actual Procedures p Intramedullary Surjit Femur(Right) - Pasquale Leiva DO Surgeon Pasquale Leiva DO Director Dietetics Department none Estimated Blood Loss 50 Findings Consistent with Post-Op Diagnosis see dictation Complications none
--- NOTE | 2022-12-22 11:06 | Operative Report ---
Post Operative Report Pre & Post Diagnosis Operation Date: 12/22/22 06:55 Pre-Op Diagnosis: Right hip fracture Post-Op Diagnosis: Right hip fracture I identified the patient and participated in the time-out.: Yes Procedure Operation Date: 12/22/22 06:55 Actual Procedures p Intramedullary Surjit Femur(Right) - Pasquale Leiva DO Surgeon Pasquale Leiva DO Color Checker Roving Or Yarn none Estimated Blood Loss 50 Findings Consistent with Post-Op Diagnosis see dictation Specimens none Complications none Indications 72-year-old female who presented to [facility] emergency department yesterday after sustaining a ground-level fall onto her right hip this past . Radiographs were obtained demonstrating impacted right femoral neck fracture. She was admitted to medical service and orthopedics was consulted for operative management. I met with the patient preoperatively and we had a lengthy discussion regarding risk benefits and potential complications of right hip ORIF for her impacted femoral neck fracture. These include but are not limited to: Infection, neurovascular injury, DVT, nonunion, hardware failure, and need for subsequent surgeries. After reviewing these she elected to proceed with surgical intervention and written consent was obtained. Description of Procedure Implants: Synthes femoral neck system plate 1 hole, 85 mm bolt, 85 mm antirotation screw, 5 mm x 48 mm StarDrive locking screw Patient was appropriately identified in the preoperative holding area and the right lower extremity was marked. She received spinal anesthesia. She was taken back to the operative suite where she received Ancef per protocol. She was then transitioned over to the manual fracture. Patient was positioned and C arm was used to assess positioning of the fracture which demonstrated a valgus impacted right femoral neck fracture. Patient was then prepped and draped in the standard orthopedic fashion and timeout was then performed. A 3 cm incision over the lateral aspect of the proximal femur was then made through skin subcutaneous tissue and IT band fascia. 130 degree guide was then placed down to the bone and a threaded guidewire was inserted into through the lateral cortex and advanced into the femoral head and a center center position just beneath the subchondral bone. Its position was assessed on AP and lateral fluoroscopy. Length of the wire was then measured at 85 mm. A tapered reamer set to 85 mm was then used to ream over the guide. A 85 mm 1 hole plate with bolt was then inserted over the guidewire and then impacted into position. Guidewire was then removed and interlocking screw for the plate was then drilled bicortically and a 48 mm locking screw was inserted. Lastly 85 mm drill was used to drill derotational screw hole. An 85 mm derotational screw was then inserted and torqued down to the plate. Final radiographs were then obtained demonstrating good position of the implant and the fracture. Wounds were then copiously irrigated using normal saline solution. Deep fascia was closed using 0 Vicryl suture followed by 2-0 Vicryl for subcutaneous tissue and david for the skin. A sterile dressing of Xeroform 4 x 4 gauze and Tegaderm was then placed. Patient tolerated the procedure well and was taken the recovery room in hemodynamically stable condition. I attest to the content of the Intraoperative Record and any orders documented therein. Any exceptions are noted below.
--- NOTE | 2022-12-22 11:27 | Fluoroscopy Report ---
FL hip RT 2-3V CLINICAL HISTORY: RT TROCH NAIL TECHNIQUE: 3 views were obtained with the C-arm in the OR with the above procedure. Total fluoroscopy time was 44.7 seconds. Radiation dose was 13.58 mGy. Comparison: None available at the time of this dictation. FINDINGS/IMPRESSION: Intraoperative images were obtained of retroperitoneal placement. Please correlate with intraoperative fluoroscopy and operative report. ACT 112: Negative or not required by law. Electronically signed by: Beto Doyle M.D. 12/22/2022 11:26 AM
--- NOTE | 2022-12-22 11:29 | Anesthesiology Progress Note ---
Date of Service December 22, 2022 Anesthesia Post Procedure Vital Signs Vital Signs: Temp Pulse Pulse Pulse Resp BP BP 12/22/22 11:25 88 18 12/22/22 11:15 92 H 16 12/22/22 11:09 97.0 F L 89 14 12/22/22 08:19 12/22/22 07:58 98.6 F 94 H 20 126/76 12/22/22 06:58 95 H 12/22/22 04:37 97 H 12/22/22 03:45 98.8 F 98 H 16 12/21/22 22:44 104 H 12/21/22 22:49 12/21/22 22:49 97.7 F 107 H 16 118/68 12/21/22 21:59 98.2 F 102 H 21 114/54 L 12/21/22 21:40 109 H 20 12/21/22 21:30 110 H 23 12/21/22 21:20 109 H 24 12/21/22 21:10 12/21/22 21:00 12/21/22 20:50 108 H 22 12/21/22 20:45 106 H 22 12/21/22 20:44 106 H 12/21/22 20:35 12/21/22 20:42 105 H 26 H 12/21/22 18:45 111 H 18 12/21/22 18:45 111 H 18 12/21/22 15:57 98.6 F 108 H 22 157/82 H BP Pulse Ox O2 Del Method O2 Flow Rate 12/22/22 11:25 103/59 L 95 Room Air 12/22/22 11:15 102/63 95 Oxymask 4 12/22/22 11:09 110/66 95 Oxymask 6 12/22/22 08:19 Room Air 12/22/22 07:58 93 Room Air 12/22/22 06:58 12/22/22 04:37 95 Nasal Cannula 2 12/22/22 03:45 107/66 92 Nasal Cannula 2 12/21/22 22:44 12/21/22 22:49 Nasal Cannula 2 12/21/22 22:49 96 Nasal Cannula 2 12/21/22 21:59 96 Nasal Cannula 2 12/21/22 21:40 98 12/21/22 21:30 96 12/21/22 21:20 94 12/21/22 21:10 86 L 12/21/22 21:00 96 12/21/22 20:50 94 12/21/22 20:45 96 12/21/22 20:44 12/21/22 20:35 86 L Nasal Cannula 0 12/21/22 20:42 144/101 H 96 Nasal Cannula 2 12/21/22 18:45 96 Room Air 12/21/22 18:45 163/87 H 96 Room Air 12/21/22 15:57 94 Room Air Pain Intensity Right Hip: Pain Intensity: 2 Transfer of Care Handoff Completed per policy Notes Mental Status: alert / awake / arousable and participated in evaluation Patient Amnestic to Procedure: Yes Nausea / Vomiting: adequately controlled Pain: adequately controlled Airway Patency, RR, SpO2: stable & adequate BP & HR: stable & adequate Hydration State: stable & adequate Neuraxial Anesthesia: was administered and sensory block is resolving Anesthetic Complications: no major complications apparent and Pt Satisfied with anesthetic care
--- NOTE | 2022-12-22 11:34 | Hospitalist Progress Note ---
Date of Service December 22, 2022 Assessment & Plan (1) Subcapital fracture of right hip: Plan: ASSESSMENT AND PLAN: This is a 72-year-old female presents with fall and right hip fracture. 1. Status post fall and right hip fracture: - stable overall - for OR today - pain control PT/OT 2. History of chronic obstructive pulmonary disease: - not in exacerbation 3. History of tobacco abuse: - current smoker - counselling 4. History of hypertension: - BP on the lower side hold Lisinopril 5. Hyperlipidemia: On statin. 6. Sustained tachycardia: Continue diltiazem. Monitor in the med tele. 7. Deep venous thrombosis prophylaxis: - SCDs for now will need Lovenox post surgery DISPOSITION: lives at home PT/OT evaluation Admission and Anticipated Discharge Date Admission Date: December 21, 2022 Subjective ff up for R hip fracture, etc sitting up in bed, comfortable in good spirits states pain is adequately controlled no chest pain, dyspnea, palpitations, dizziness no other symptoms Review of Systems Review of Systems: all noted and negative except for above Physical Exam Physical Exam: General- oriented x 3, not in distress, speaks in sentences with no effort or accessory muscle use Eyes- anicteric Neck- no JVD Lungs- clear breath sounds bilaterally, no rales/wheezes Heart- normal rate, regular rhythm; no murmurs Abdomen- normal bowel sounds, nondistended, soft, nontender Extremities- RLE: slight external rotation no pretibial edema, no calf tenderness Neuro- alert, oriented x 3; no gross focal neurologic deficits Skin- warm & dry Results & Data Results & Data Vital Signs (Past 12 Hours) Vital Signs Temp Pulse Pulse Pulse Resp BP BP 12/22/22 11:25 88 18 103/59 L 12/22/22 11:15 92 H 16 102/63 12/22/22 11:09 36.1 C L 89 14 110/66 12/22/22 08:19 12/22/22 07:58 37.0 C 94 H 20 126/76 12/22/22 06:58 95 H 12/22/22 04:37 97 H 12/22/22 03:45 37.1 C 98 H 16 107/66 Pulse Ox O2 Del Method O2 Flow Rate 12/22/22 11:25 95 Room Air 12/22/22 11:15 95 Oxymask 4 12/22/22 11:09 95 Oxymask 6 12/22/22 08:19 Room Air 12/22/22 07:58 93 Room Air 12/22/22 06:58 12/22/22 04:37 95 Nasal Cannula 2 12/22/22 03:45 92 Nasal Cannula 2 all noted and reviewed including below (1) Subcapital fracture of right hip Encounter type: initial encounter Fracture type: closed Qualified Code(s): S72.011A - Unspecified intracapsular fracture of right femur, initial encounter for closed fracture
[2022-12-22] MEDS: LACTATED RINGER'S 1,000 ML IV SCH ×2 (12:07→19:49)
--- NOTE | 2022-12-22 13:34 | Electrocardiogram Report ---
Test Reason : Blood Pressure : / mmHG Vent. Rate : 108 BPM Atrial Rate : 108 BPM P-R Int : 148 ms QRS Dur : 084 ms QT Int : 352 ms P-R-T Axes : 067 055 066 degrees QTc Int : 471 ms Poor data quality, interpretation may be adversely affected Sinus tachycardia Possible Left atrial enlargement Borderline ECG When compared with ECG of 29-JUN-2007 16:25, Non-specific change in ST segment in Anterior leads Confirmed by Mariusz Hinson ([id number]) on 12/22/2022 1:34:35 PM Referred By: Lexi Faustin Confirmed By:Mariusz Hinson
[2022-12-22] MEDS: HYDROmorphone INJ 0.5 MG/0.5 ML SYR IV PRN ×2 (14:42→19:48)
[2022-12-22] MEDS: ceFAZolin 2000MG 2,000 MG/15 ML SYR IV SCH (15:53)
[2022-12-22] MEDS: ACETAMINOPHEN 325 MG TAB PO PRN (19:47)
[2022-12-22] MEDS: ASPIRIN 81 MG ECTAB PO SCH (19:49)
[2022-12-23] MEDS: HYDROmorphone INJ 0.5 MG/0.5 ML SYR IV PRN ×3 (00:05→20:22)
[2022-12-23] MEDS: ceFAZolin 2000MG 2,000 MG/15 ML SYR IV SCH (00:08)
[2022-12-23] MEDS: ACETAMINOPHEN 325 MG TAB PO PRN ×2 (04:09→09:54)
[2022-12-23] MEDS: LACTATED RINGER'S 1,000 ML IV SCH (04:57)
[2022-12-23 08:01] LABS: Basophils # (auto) 0.03 K/uL (0-0.2); Basophils % (auto) 0.3 %; Eosinophils # (auto) 0.01 K/uL (0-0.50); Eosinophils % (auto) 0.1 %; Hematocrit (blood only) 40.3 % (37.0-47.0); Immature Granulocytes # (auto) 0.04 K/uL (0.01-0.20); Immature Granulocytes % (auto) 0.4 %; Lymphocytes # (auto) 1.36 K/uL (1.2-3.4); Mean Corpuscular Hemoglobin 32.2 pg (25.0-34.0); Mean Corpuscular Hgb Conc 34.7 g/dL (32.0-36.0); Mean Corpuscular Volume 92.6 fL (80.0-100.0); Mean Platelet Volume 11.7 fL (9.4-12.4); Monocytes # (auto) 0.63 K/uL (0.11-0.59); Monocytes % (auto) 6.5 %; Neutrophils # (auto) 7.64 K/uL (1.40-6.50); Neutrophils % (auto) 78.7 %; Platelet Count 141 K/uL (130-400); RDW Coefficient of Variation 13.2 % (11.5-14.5); RDW Standard Deviation 44.5 fL (36.4-46.3); Red Blood Count 4.35 M/uL (4.20-5.40); White Blood Count 9.71 K/ul (4.8-10.8)
[2022-12-23 08:21] LABS: BUN Creatinine Ratio 21.8 (10-20); Calcium 9.1 mg/dl (8.6-10.3); Creatinine Clr Calc Pharmacy 111.9 ml/min; Est GFR (African American) 108.6 ml/min; Est GFR (Non-African American) 93.7 ml/min; Potassium 4.1 mmol/L (3.5-5.1)
[2022-12-23] MEDS: dilTIAZem HCL 240 MG CAPCR PO SCH (08:56)
[2022-12-23] MEDS: ASPIRIN 81 MG ECTAB PO SCH ×2 (08:56→20:21)
[2022-12-23] MEDS: ATORVASTATIN 10 MG TAB PO SCH (08:57)
[2022-12-23] MEDS: FLUTICASONE PROPIONATE NA SPR 16 GM BTL SCH (08:57)
--- NOTE | 2022-12-23 11:26 | Hospitalist Progress Note ---
Date of Service December 23, 2022 Assessment & Plan (1) Subcapital fracture of right hip: Plan: ASSESSMENT AND PLAN: This is a 72-year-old female presents with fall and right hip fracture. 1. Status post fall and right hip fracture: - stable overall - add scheduled Tylenol 1 g TID, Tramadol for moderate pain ice pack stool softener - PT/OT eval 2. History of chronic obstructive pulmonary disease: - not in exacerbation 3. History of tobacco abuse: - current smoker - counselling 4. History of hypertension: - resume Lisinopril 5. Hyperlipidemia: On statin. 6. Sustained tachycardia:resolved Continue diltiazem. 7. Deep venous thrombosis prophylaxis: - SCDs for now will need Lovenox post surgery DISPOSITION: lives at home PT/OT evaluation Admission and Anticipated Discharge Date Admission Date: December 21, 2022 Subjective ff up for s/p R hip surgery, etc seen resting in bed, sitting up comfortable states R hip pain increased after ambulating this morning no chest pain, dyspnea, palpitations, dizziness no fever/chills, nausea no other symptoms Review of Systems Review of Systems: all noted and negative except for above Physical Exam Physical Exam: General- oriented x 3, not in distress, speaks in sentences with no effort or accessory muscle use Eyes- anicteric Neck- no JVD Lungs- clear breath sounds bilaterally, no rales/wheezes Heart- normal rate, regular rhythm; no murmurs Abdomen- normal bowel sounds, nondistended, soft, nontender Extremities- no pretibial edema, no calf tenderness R hip: moderate edema, faint hematoma, dressing in place: no bleeding/discharge Neuro- alert, oriented x 3; no gross focal neurologic deficits Skin- warm & dry Results & Data Results & Data Vital Signs (Past 12 Hours) Vital Signs Temp Pulse Pulse Resp BP Pulse Ox O2 Del Method 12/23/22 08:01 36.4 C L 84 18 136/73 91 Room Air 12/23/22 07:45 Room Air 12/23/22 05:59 88 12/23/22 04:00 36.5 C 87 20 118/66 93 Room Air 12/23/22 00:11 Room Air 12/22/22 23:48 36.8 C 84 20 105/66 92 Room Air all noted and reviewed including below (1) Subcapital fracture of right hip Encounter type: initial encounter Fracture type: closed Qualified Code(s): S72.011A - Unspecified intracapsular fracture of right femur, initial encounter for closed fracture
[2022-12-23] MEDS: traMADol HCL 50 MG TABLET PO PRN (15:00)
--- NOTE | 2022-12-23 15:54 | Orthopedic Progress Note ---
Date of Service December 23, 2022 Assessment & Plan (1) Subcapital fracture of right hip: Plan: POD 1 s/p ORIf Right hip with Synthes FNS system PT/OT protocols - WBAT. DVT prophylaxis - ASA bid, SCD's pain managment as written Admission and Anticipated Discharge Date Admission Date: December 21, 2022 Subjective POD 1 Pt lying in bed awake, alert. Mild pain with movement. No other complaints today. States she ambulated the hallway today with PT. Physical Exam Physical Exam: Dressings C/D/I. Thigh with mild swelling but soft. Calves soft, NT. NV intact. Toes mobile. Results & Data Vital Signs (Past 12 Hours) Vital Signs Temp Pulse Pulse Resp BP Pulse Ox O2 Del Method 12/23/22 15:13 36.7 C 94 H 20 152/84 H 90 Room Air 12/23/22 08:01 36.4 C L 84 18 136/73 91 Room Air 12/23/22 07:45 Room Air 12/23/22 05:59 88 12/23/22 04:00 36.5 C 87 20 118/66 93 Room Air Laboratory Results Laboratory Results WBC 9.71 K/ul (4.8-10.8) 12/23/22 07:32 RBC 4.35 M/uL (4.20-5.40) 12/23/22 07:32 Hgb 14.0 g/dl (12.0-16.0) 12/23/22 07:32 Hct 40.3 % (37.0-47.0) 12/23/22 07:32 MCV 92.6 fL (80.0-100.0) 12/23/22 07:32 MCH 32.2 pg (25.0-34.0) 12/23/22 07:32 MCHC 34.7 g/dL (32.0-36.0) 12/23/22 07:32 RDW Std Deviation 44.5 fL (36.4-46.3) 12/23/22 07:32 RDW Coeff of Lilli 13.2 % (11.5-14.5) 12/23/22 07:32 Plt Count 141 K/uL (130-400) 12/23/22 07:32 MPV 11.7 fL (9.4-12.4) 12/23/22 07:32 Immature Gran % (Auto) 0.4 % 12/23/22 07:32 Neut % (Auto) 78.7 % 12/23/22 07:32 Lymph % (Auto) 14.0 % 12/23/22 07:32 Falls % (Auto) 6.5 % 12/23/22 07:32 Eos % (Auto) 0.1 % 12/23/22 07:32 Baso % (Auto) 0.3 % 12/23/22 07:32 Neut # (Auto) 7.64 K/uL (1.40-6.50) H 12/23/22 07:32 Lymph # (Auto) 1.36 K/uL (1.2-3.4) 12/23/22 07:32 Falls # (Auto) 0.63 K/uL (0.11-0.59) H 12/23/22 07:32 Eos # (Auto) 0.01 K/uL (0-0.50) 12/23/22 07:32 Baso # (Auto) 0.03 K/uL (0-0.2) 12/23/22 07:32 Immature Gran # (Auto) 0.04 K/uL (0.01-0.20) 12/23/22 07:32 PT 10.7 Seconds (9.0-12.0) 12/21/22 18:55 INR 1.0 (0.9-1.1) 12/21/22 18:55 APTT 33.2 Seconds (21.0-31.0) H 12/21/22 18:55 PTT Ratio 1.2 12/21/22 18:55 Sodium 138 mmol/L (136-145) 12/23/22 07:32 Potassium 4.1 mmol/L (3.5-5.1) 12/23/22 07:32 Chloride 105 mmol/L (98-107) 12/23/22 07:32 Carbon Dioxide 28 mmol/L (21-32) 12/23/22 07:32 Anion Gap 5 (3-11) 12/23/22 07:32 BUN 12 mg/dl (6-23) 12/23/22 07:32 Creatinine 0.55 mg/dl (0.6-1.2) L 12/23/22 07:32 Est Cr Clr Drug Dosing 111.9 ml/min 12/23/22 07:32 Est GFR ( Amer) 108.6 ml/min 12/23/22 07:32 Est GFR (Non-Af Amer) 93.7 ml/min 12/23/22 07:32 BUN/Creatinine Ratio 21.8 (10-20) H 12/23/22 07:32 Glucose 128 mg/dl (70-99(Fasting)) H 12/23/22 07:32 Calcium 9.1 mg/dl (8.6-10.3) 12/23/22 07:32 Magnesium 1.9 mg/dl (1.7-2.4) 12/22/22 05:16 Total Bilirubin 0.8 mg/dl (0.2-1.0) 12/21/22 18:55 AST 16 U/L (13-39) 12/21/22 18:55 ALT 16 U/L (7-52) 12/21/22 18:55 Alkaline Phosphatase 69 U/L (34-104) 12/21/22 18:55 Troponin I High Sens 8.5 pg/ml (0-14) 12/21/22 18:55 Total Protein 7.5 gm/dl (6.0-8.3) 12/21/22 18:55 Albumin 4.2 gm/dl (3.4-5.0) 12/21/22 18:55 Globulin 3.3 gm/dl (2.5-4.0) 12/21/22 18:55 Albumin/Globulin Ratio 1.3 (0.9-2) 12/21/22 18:55 Lipase 12 U/L (11-82) 12/21/22 18:55 25-OH Vitamin D Total 17.7 ng/ml (30-100) L 12/23/22 07:32 Nasal Screen MRSA (PCR) Negative (Negative) 12/22/22 17:20 SARS-CoV-2, RNA, NAAT NEGATIVE (NEGATIVE) 12/21/22 18:55 Impressions Hip/Pelvis X-Ray 12/21/22 16:00 SINGLE VIEW PELVIS; 2 VIEWS RIGHT HIP CLINICAL HISTORY: Recent fall. Right hip pain. FINDINGS: An AP view of the pelvis with AP and frog leg views of the right hip are obtained. No prior studies are available for comparison at the time of dictation. The skeletal structures are osteopenic. There is an impacted subcap ital fracture of the right proximal femur with overlying soft tissue edema. No additional fracture is seen involving the left hip or the bony pelvis. Mild arthritic change and joint space narrowing is seen in the hips. Enthesophytes arise from the anterior superior iliac spines. There is degenerative sclerosis of the sacroiliac joints. IMPRESSION: Impacted subcapital fracture of the right proximal femur as above. Electronically signed by: Luis Jordan M.D. 12/21/2022 6:24 PM Hip X-Ray 12/22/22 09:30 FL hip RT 2-3V CLINICAL HISTORY: RT TROCH NAIL TECHNIQUE: 3 views were obtained with the C-arm in the OR with the above procedure. Total fluoroscopy time was 44.7 seconds. Radiation dose was 13.58 mGy. Comparison: None available at the time of this dictation. FINDINGS/IMPRESSION: Intraoperative images were obtained of retroperitoneal placement. Please correlate with intraoperative fluoroscopy and operative report. ACT 112: Negative or not required by law. Electronically signed by: Beto Doyle M.D. 12/22/2022 11:26 AM (1) Subcapital fracture of right hip Encounter type: initial encounter Fracture type: closed Qualified Code(s): S72.011A - Unspecified intracapsular fracture of right femur, initial encounter for closed fracture
[2022-12-23] MEDS ORDERED: Nursing to Pharmacy Communication SCH (16:00)
[2022-12-23] MEDS: ACETAMINOPHEN 500 MG TAB PO SCH ×2 (16:49→23:37)
[2022-12-23] MEDS: lisinopril 20 MG TAB PO SCH (20:21)
[2022-12-24] MEDS: ACETAMINOPHEN 500 MG TAB PO SCH ×3 (07:38→23:49)
[2022-12-24] MEDS: ATORVASTATIN 10 MG TAB PO SCH (07:38)
[2022-12-24] MEDS: POLYETHYLENE (MIRALAX) 17 GM PACK PO SCH (07:38)
[2022-12-24] MEDS: dilTIAZem HCL 240 MG CAPCR PO SCH (07:38)
[2022-12-24] MEDS: lisinopril 20 MG TAB PO SCH ×2 (07:38→19:29)
[2022-12-24] MEDS: FLUTICASONE PROPIONATE NA SPR 16 GM BTL SCH (07:39)
[2022-12-24] MEDS: ASPIRIN 81 MG ECTAB PO SCH ×2 (07:39→19:29)
--- NOTE | 2022-12-24 08:00 | Hospitalist Progress Note ---
Date of Service December 24, 2022 Assessment & Plan (1) Subcapital fracture of right hip: Plan: possible Age-related osteoporosis with current pathological fracture, right femur (1) Subcapital fracture of right hip: Plan: ASSESSMENT AND PLAN: This is a 72-year-old female presents with fall and right hip fracture. 1. Status post fall and right hip fracture: - stable overall - scheduled Tylenol 1 g TID, Tramadol for moderate pain ice pack stool softener - PT/OT eval Pain well controlled Patient prefers to be discharged to home with home health services Will need prescription for tramadol as needed Aspirin twice daily for DVT prophylaxis per orthopedic service Follow-up with orthopedic surgeon Dr. Pasquale Leiva in 1 week Vitamin D deficiency Vitamin D level 17 Vitamin D3 daily ordered Repeat vitamin D levels in 6 weeks 2. History of chronic obstructive pulmonary disease: - not in exacerbation 3. History of tobacco abuse: - current smoker - counselling 4. History of hypertension: - Lisinopril 5. Hyperlipidemia: On statin. 6. Sustained tachycardia:resolved Continue diltiazem. 7. Deep venous thrombosis prophylaxis: -Aspirin twice daily per Ortho DISPOSITION: lives at home Anticipate discharge to home with home services tomorrow Admission and Anticipated Discharge Date Admission Date: December 21, 2022 Subjective Follow-up for right hip surgery, right hip fracture status post fall, etc. Seen resting in bed, comfortable, not in distress States pain is well controlled Ambulated in the hallway with minimal discomfort, no chest pain, shortness of breath, dizziness, palpitations No fever, nausea vomiting, abdominal pain No other symptoms Review of Systems Review of Systems: all noted and negative except for above Physical Exam Physical Exam: General- oriented x 3, not in distress, speaks in sentences with no effort or accessory muscle use Eyes- anicteric Neck- no JVD Lungs- clear breath sounds bilaterally, no crackles, no wheezing Heart- normal rate, regular rhythm; no murmurs Abdomen- normal bowel sounds, nondistended, soft, nontender Extremities- no pretibial edema, no calf tenderness Right hip-dressing in place, no bleeding or discharge Mild edema, faint hematoma No tenderness/warmth Neuro- alert, oriented x 3; no gross focal neurologic deficits Skin- warm & dry Results & Data Results & Data Vital Signs (Past 12 Hours) Vital Signs Temp Pulse Resp BP Pulse Ox O2 Del Method 12/24/22 07:37 36.3 C L 79 16 158/84 H 95 Room Air 12/23/22 20:20 Room Air 12/23/22 20:13 36.8 C 81 16 144/81 H 93 Room Air all noted and reviewed including below (1) Subcapital fracture of right hip Encounter type: initial encounter Fracture type: closed Qualified Code(s): S72.011A - Unspecified intracapsular fracture of right femur, initial encounter for closed fracture
[2022-12-24] MEDS: CHOLECALCIFEROL 1,000 UNITS 25 MCG TAB PO SCH (09:31)
--- NOTE | 2022-12-24 09:45 | Orthopedic Progress Note ---
Date of Service December 24, 2022 Assessment & Plan (1) Subcapital fracture of right hip: Plan: POD 2 s/p ORIf Right hip with Synthes FNS system PT/OT protocols - WBAT. DVT prophylaxis - ASA bid, SCD's pain managment as written Orthopedics will sign off at this time. Instructions placed in DC section. Please call with any questions. Admission and Anticipated Discharge Date Admission Date: December 21, 2022 Subjective POD 2 Pt ambulating in her room with walker. States she's feeling sore all over this AM. Feels she may have overdone her ambulation yesterday. No other complaints. Pain controlled at present. Physical Exam Physical Exam: Dressings C/D/I. Thigh with swelling but soft. Calves soft, NT. NV intact. Results & Data Vital Signs (Past 12 Hours) Vital Signs Temp Pulse Resp BP Pulse Ox O2 Del Method 12/24/22 07:37 36.3 C L 79 16 158/84 H 95 Room Air (1) Subcapital fracture of right hip Encounter type: initial encounter Fracture type: closed Qualified Code(s): S72.011A - Unspecified intracapsular fracture of right femur, initial encounter for closed fracture
[2022-12-24] MEDS: traMADol HCL 50 MG TABLET PO PRN (22:51)
[2022-12-25] MEDS: CHOLECALCIFEROL 1,000 UNITS 25 MCG TAB PO SCH (07:53)
[2022-12-25] MEDS: dilTIAZem HCL 240 MG CAPCR PO SCH (07:53)
[2022-12-25] MEDS: lisinopril 20 MG TAB PO SCH (07:53)
[2022-12-25] MEDS: ATORVASTATIN 10 MG TAB PO SCH (07:53)
[2022-12-25] MEDS: FLUTICASONE PROPIONATE NA SPR 16 GM BTL SCH (07:53)
[2022-12-25] MEDS: ASPIRIN 81 MG ECTAB PO SCH (07:53)
[2022-12-25] MEDS: POLYETHYLENE (MIRALAX) 17 GM PACK PO SCH (07:55)
[2022-12-25] MEDS: ACETAMINOPHEN 500 MG TAB PO SCH (07:55)
--- NOTE | 2022-12-25 12:51 | Hospitalist Progress Note ---
Date of Service December 25, 2022 Assessment & Plan (1) Subcapital fracture of right hip: Plan: possible Age-related osteoporosis with current pathological fracture, right femur (1) Subcapital fracture of right hip: Plan: ASSESSMENT AND PLAN: This is a 72-year-old female presents with fall and right hip fracture. Status post fall and right hip fracture: Status post right intramedullary femoral taylor placement on 12/22/2022 Appreciate Ortho input and recommendation Has been getting physical therapy and the patient wanted to go home with home health Walker was provided and she has been ambulating in the room and in the hallway with acceptable pain She will be discharged home this afternoon Will be seen by Ortho as an outpatient and will make an appointment with PCP within 7 days Aspirin twice daily for DVT prophylaxis per orthopedic service Follow-up with orthopedic surgeon Dr. Pasquale Leiva in 1 week Vitamin D deficiency Vitamin D level 17 Vitamin D3 daily ordered Repeat vitamin D levels in 6 weeks 2. History of chronic obstructive pulmonary disease: - not in exacerbation -We will continue her home medications 3. History of tobacco abuse: - current smoker - counselling -Strongly advised to quit smoking 4. History of hypertension: - Lisinopril -Blood pressure remains on the upper side 5. Hyperlipidemia: On statin. 6. Sustained tachycardia:resolved Continue diltiazem. 7. Deep venous thrombosis prophylaxis: -Aspirin twice daily per Ortho DISPOSITION: lives at home Anticipate discharge to home with home services tomorrow Will be discharged home this afternoon Admission and Anticipated Discharge Date Admission Date: December 21, 2022 Subjective 12/25/2022 The patient was seen and examined in telemetry unit He has been feeling much better and has been ambulating in the room and in the hallway with acceptable pain at the right hip His blood pressure seems to be stable but remains on the upper side Denies any cardiac symptoms with activities He wants to go home and will be sent home this afternoon Review of Systems Review of Systems: All systems reviewed and are unremarkable except as noted below Physical Exam Physical Exam: Sitting at the edge of the bed without any acute distress Constitutional: well developed, well nourished and + obese; not ill appearing Eyes: PERRL, conjunctivae normal, anicteric sclerae ENMT: external ear and nose normal, oropharynx normal Neck: trachea midline, no thyromegaly Respiratory: no respiratory distress Auscultation: lungs clear to auscultation bilaterally Cardiovascular: Rate/Rhythm: regular rate and regular rhythm; not tachycardic Heart Sounds: normal S1 and normal S2; no murmur Extremities: no edema Gastrointestinal (Abdomen): Inspection/Auscultation: normal bowel sounds; abdomen not distended Percussion/Palpation: abdomen soft; abdomen nontender Musculoskeletal: Status post right intramedullary taylor femur Neurologic: normal touch/pain/proprioception and moves all extremities; no focal motor deficits No acute arthritis involving any joint Psychiatric: A+Ox3, euthymic affect Lymphatic: no cervical or axillary lymphadenopathy Results & Data Results & Data Vital Signs (Past 12 Hours) Vital Signs Temp Pulse Resp BP Pulse Ox O2 Del Method 12/25/22 07:30 36.5 C 85 16 171/94 H 93 Room Air Medications Administered Current Inpatient Medications Acetaminophen (Acetaminophen 500 Mg Tab) 1,000 mg PO Q8H [facility] Stop: 01/22/23 15:59 Last Admin: 12/25/22 07:55 Dose: 1,000 mg Albuterol (Albuterol Hfa 8 Gm Inhaler) 2 puffs INH Q6H PRN PRN Reason: Shortness Of Breath Or Wheezing Stop: 01/20/23 22:48 Aspirin (Aspirin 81 Mg Ectab) 81 mg PO BID [facility] Stop: 01/21/23 20:59 Last Admin: 12/25/22 07:53 Dose: 81 mg Atorvastatin Calcium (Atorvastatin 10 Mg Tab) 10 mg PO DAILY [facility] Stop: 01/21/23 08:59 Last Admin: 12/25/22 07:53 Dose: 10 mg Diltiazem HCl (Diltiazem Hcl 240 Mg Capcr) 240 mg PO DAILY [facility] Stop: 01/21/23 08:59 Last Admin: 12/25/22 07:53 Dose: 240 mg Fluticasone Propionate (Fluticasone Propionate Na Spr 16 Gm Btl) 2 sprays NA DAILY [facility] Stop: 01/21/23 08:59 Last Admin: 12/25/22 07:53 Dose: 2 sprays Hydralazine HCl (Hydralazine Hcl 20 Mg/Ml Vial) 5 mg IV Q6H PRN PRN Reason: Hypertension Stop: 01/21/23 08:00 Hydromorphone HCl (Hydromorphone Inj 0.5 Mg/0.5 Ml Syr) 0.5 mg IV Q3H PRN PRN Reason: Pain Stop: 01/04/23 22:48 Last Admin: 12/23/22 20:22 Dose: 0.5 mg Lisinopril (Lisinopril 20 Mg Tab) 20 mg PO BID [facility] Stop: 01/22/23 20:59 Last Admin: 12/25/22 07:53 Dose: 20 mg Nitroglycerin (Nitroglycerin Sl 0.4 Mg/Tab Tab) 0.4 mg SL Q5M PRN PRN Reason: Chest Pain Stop: 01/20/23 22:48 Ondansetron HCl (Ondansetron Inj 2 Mg/Ml 2 Ml Vial) 4 mg IV Q6H PRN PRN Reason: Nausea Stop: 01/20/23 22:48 Polyethylene Glycol (Polyethylene (Miralax) 17 Gm Pack) 17 gm PO DAILY PRN PRN Reason: Constipation Stop: 01/20/23 22:48 Polyethylene Glycol (Polyethylene (Miralax) 17 Gm Pack) 17 gm PO DAILY [facility] Stop: 01/23/23 08:59 Last Admin: 12/25/22 07:55 Dose: 17 gm Tramadol HCl (Tramadol Hcl 50 Mg Tablet) 50 mg PO Q6H PRN PRN Reason: Moderate Pain (Scale 4, 5, 6) Stop: 01/22/23 11:28 Last Admin: 12/24/22 22:51 Dose: 50 mg Vitamin D (Cholecalciferol 1,000 Units 25 Mcg Tab) 1,000 units PO DAILY [facility] Stop: 01/23/23 08:59 Last Admin: 12/25/22 07:53 Dose: 1,000 units (1) Subcapital fracture of right hip Encounter type: initial encounter Fracture type: closed Qualified Code(s): S72.011A - Unspecified intracapsular fracture of right femur, initial encounter for closed fracture
--- NOTE | 2022-12-26 08:30 | Discharge Summary ---
Date of Service December 25, 2022 Admission HPI Per Admitting Provider DICTATED BY:Toan Puri MD DATE OF ADMISSION: 12/21/2022. CHIEF COMPLAINT: Status post fall and right hip fracture. HISTORY OF PRESENT ILLNESS: This is a 72-year-old female with past medical history significant for hyperlipidemia, COPD, ongoing tobacco abuse, history of hypertension, sinus tachycardia, history of lumbar degenerative disc disease, obesity, history of depression currently no longer on Zoloft, history of endometrial cancer, status post surgery, under surveillance, who presents with fall and found to have right hip fracture. The patient says couple of days ago, when she was getting out of the car, she slipped and fell on the right side. She could not get up for long time. Finally, she was able to get up and drove . She is walking with dragging her right leg and the pain was getting worse, not eating much and drinking because of the pain and she went to see PCP office and was advised to come to the ER and found to have right hip fracture. She was given pain medications and curently she is requiring 2 liters of oxygen. Denies any chest pain or shortness of breath, occasional cough, occasional runny nose, no sore throat, no fevers, no headache, no blurred visions, was nauseous because of pain medications. No abdominal pain. Normal bowel and bladder movements. Says micturating lot because she is mostly on liquid diet for last couple days. ALLERGIES: LATEX. Admission Exam Per Admitting Provider GENERAL: The patient is obese, not in acute distress. VITAL SIGNS: Temperature 37, pulse 106, respiratory rate 20, blood pressure 144/101, oxygen 96% on 2 liters. HEENT: Pupils equal, round and reactive to light. Oral mucosa moist. NECK: No JVD. No neck masses. CARDIOVASCULAR: S1 and S2 heard. Regular rate and rhythm. No murmur, no gallop. RESPIRATORY SYSTEM: Normal AP diameter. No accessory muscle use. No wheezing, no crackles. ABDOMEN: Soft, bowel sounds present, nontender, no distention. CENTRAL NERVOUS SYSTEM: Alert and oriented. Speech is clear. No facial droop. Obeys simple commands. EXTREMITIES: Right lower extremity is slightly shortened. No edema, no erythema seen. Principal Diagnosis Subcapital fracture of the right hip, status post intramedullary surjit placement, stable COPD, hypertension, vitamin D deficiency Discharge Exam Sitting at the edge of the bed without any acute distress Constitutional well developed, well nourished and + obese; not ill appearing Eyes PERRL, conjunctivae normal, anicteric sclerae ENMT external ear and nose normal, oropharynx normal Neck trachea midline, no thyromegaly Respiratory no respiratory distress Auscultation: lungs clear to auscultation bilaterally Cardiovascular Rate/Rhythm: regular rate and regular rhythm; not tachycardic Heart Sounds: normal S1 and normal S2; no murmur Extremities: no edema Gastrointestinal (Abdomen) Inspection/Auscultation: normal bowel sounds; abdomen not distended Percussion/Palpation: abdomen soft; abdomen nontender Neurologic normal touch/pain/proprioception and moves all extremities; no focal motor deficits Psychiatric A+Ox3, euthymic affect Lymphatic no cervical or axillary lymphadenopathy Discharge Data Allergies Allergy/AdvReac Type Severity Reaction Status Date / Time latex Allergy Rash Verified 12/22/22 00:39 Consultations 12/21/22 20:06 ED Decision to Admit Stat 12/22/22 08:00 Consult Orthopedic Surgery Routine Procedures Performed Operation Date: 12/22/22 06:55 Actual Procedures p Intramedullary Surjit Femur(Right) - Pasquale Leiva DO Ordered Studies 12/22/22 09:30 FL hip RT 2-3V Routine Hospital Course (1) Subcapital fracture of right hip: possible Age-related osteoporosis with current pathological fracture, right femur (1) Subcapital fracture of right hip: Plan: ASSESSMENT AND PLAN: This is a 72-year-old female presents with fall and right hip fracture. Status post fall and right hip fracture: Status post right intramedullary femoral surjit placement on 12/22/2022 Appreciate Ortho input and recommendation Has been getting physical therapy and the patient wanted to go home with home health Walker was provided and she has been ambulating in the room and in the hallway with acceptable pain She will be discharged home this afternoon Will be seen by Ortho as an outpatient and will make an appointment with PCP within 7 days Aspirin twice daily for DVT prophylaxis per orthopedic service Follow-up with orthopedic surgeon Dr. Pasquale Leiva in 1 week Vitamin D deficiency Vitamin D level 17 Vitamin D3 daily ordered Repeat vitamin D levels in 6 weeks 2. History of chronic obstructive pulmonary disease: - not in exacerbation -We will continue her home medications 3. History of tobacco abuse: - current smoker - counselling -Strongly advised to quit smoking 4. History of hypertension: - Lisinopril -Blood pressure remains on the upper side 5. Hyperlipidemia: On statin. 6. Sustained tachycardia:resolved Continue diltiazem. 7. Deep venous thrombosis prophylaxis: -Aspirin twice daily per Ortho DISPOSITION: lives at home Anticipate discharge to home with home services tomorrow Will be discharged home this afternoon Total Time Total Time Spent Total Time Spent (In Minutes): 35 minutes Discharge Plan Discharge Items Patient Disposition: Home - Self-Care Reason For Visit: HIP FRACTURE Discharge Diagnosis: Subcapital fracture of the right hip, status post intramedullary surjit placement, stable COPD, hypertension, vitamin D deficiency Condition on Discharge: Fair Activity: Per Instructions section Weightbearing: Right weightbearing Weightbearing Comment: as tolerated with walker Non-emergency contact: Surgeon Call non-emergency contact if: you have any medication questions, your pain is not controlled, your temperature is above 101.5, your wound has increased redness and your wound has increased drainage Follow-up/Referrals: Ana Maria House CRNP [Nurse Practitioner] - (Please follow up with Ana Maria QUINONEZ in 6 weeks for an osteoporosis work up visit if you have not had one in the recent past. ) Jagdish Witt DO [Primary Care Provider] - (Date & Time 12/31/2022 11:20 AM Provider Jagdish Witt DO Department Family [facility] ) Pasquale Leiva DO [Surgeon] - (Follow up with Dr. 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 You are to ambulate with a walker or crutches for approximately 6 weeks. B. You are WEIGHT BEARING TOLERATED on your operative lower extremity for at least 6 weeks. C. Wear low heeled shoes with non-slip soles D. Be sure that your floors are free of things that could trip you throw rugs, electrical cords, and small objects. Avoid wet and waxed floors, especially with crutches/walker/cane. E. Try to walk several times a day with rest periods between. F. You may shower 48 hours after surgery and get the incision area wet, but DO NOT soak or submerge incision area in water. (No baths, swimming pools, hot tubs) G. You may have a large, band-aid like dressing over your incision (Aquacel). This will remain on your incision for 7 days, and then can be removed. You CAN shower with this on. If incision is leaking through the dressing, please call the office . H. Do NOT apply soap or any ointment/lotions directly over incision. I. You may use ice as needed to operative site. SPECIAL CARE INSTRUCTIONS: VERY IMPORTANT TO READ AND REVIEW A. You may be at risk for phlebitis or blood clots. a. Wear surgical stockings (ANDER hose) for 2 weeks after surgery to improve circulation and reduce swelling. b. Take ASPIRIN 81 mg twice daily for 4 weeks or as directed. This is your blood thinner. B. There are a few signs you need to watch for after you are home. Call [facility] at [phone] if you experience any of the following: a. If you have a temperature of 101 degrees or higher. b. Sudden increase in pain in your hip not relieved by rest or pain medication. c. Any fluid or drainage from the incision; redness of the incision. d. Shortness of breath or chest pain. . C. Call your physician if: a. Temperature is greater than 101 degrees (F). b. Pain is not relieved by prescribed pain medications. c. Increase drainage or redness from incision. d. Unanswered questions or concerns. D. Pain Medication: a. You will be prescribed pain medication upon discharge that should last till your first post-operative appointment. b. If you experience nausea and/or skin rash, discontin ue this medication and contact our office for an alternative medication. c. Caution- narcotic pain medication can cause constipation. FOLLOW UP VISIT: Please call [facility] at [phone] to schedule a follow up appointment 10-14 days from the date of your surgery date. Pending Studies at Discharge: No Stand-Alone Forms: My [facility], Smoking Cessation Medications and DC Order Prescriptions: New aspirin 81 mg Tablet,Delayed Release (Dr/Ec) 81 mg PO BID 30 Days Qty: 60 0RF tramadol 50 mg Tablet 50 mg PO Q6H PRN (Reason: pain) 5 Days Qty: 15 0RF cholecalciferol (vitamin D3) 25 mcg (1,000 unit) Capsule 1,000 unit PO DAILY 30 Days Qty: 30 0RF Continued atorvastatin 10 mg tablet 10 mg PO DAILY lisinopril 20 mg tablet 20 mg PO BID diltiazem HCl 240 mg capsule,extended release 24 hr 240 mg PO DAILY albuterol sulfate 90 mcg/actuation HFA aerosol inhaler 2 inh INHALATION Q6H PRN (Reason: Shortness Of Breath Or Wheezing) fluticasone propionate 50 mcg/actuation spray,suspension 2 spray INTRANASAL DAILY Discharge Orders: Discharge Order (Routine); Ordered 12/25/22 Ordered By: Darin Portillo Admission Data Admit Date/Time: 12/21/22 22:40 Attending Provider: Darin Portillo Admit Provider: Toan Puri Primary Care Provider: Jagdish Witt Other Providers: Toan Puri ; Son Cortes ; Brandon Lezama ; Mercedes Jauregui Thomas J ; Zara Coleman ; Ezekiel Moreno ; Hai Maldonado ; Willam Roblero Andrew J. ; Hai Cool ; Sai Giang ; Rolando Stringer ; Jan Colin ; Mina Corbin ; Zara Massey ; Benedict Zhang ; Tian Gomez ; Ana Maria House John ; Sidney Guy ; Linda Cotto ; Pasquale Leiva ; Rosa Murguia ; Beto Pearson ; Colton Jason Other Interventions: Discharge Summary Assessment (RN) Last Done: 12/25/22 15:00
== END 2022-12-25 16:21 | disposition home or self-care (01) | DRG 482 ==
LOC: ED 15:46 → 2W 21:59 → SUATTDRO 22:40 → 3E 12-23 16:45